=== PATIENT | male | born 1975 | race African-American/Black ===

== ENCOUNTER 2018-06-10 09:08 | Emergency (ER) | payer OTHER, SELFPAY ==
--- NOTE | 2018-06-10 09:59 | RAD ---
RIGHT HAND THREE VIEWS: HISTORY: Trauma. Injury. Dropped wood on hand. COMPARISON: None. FINDINGS: Small erosion, likely chronic, along the medial aspect of the fourth proximal phalanx base. No acute fracture or malalignment. IMPRESSION: No acute fracture or malalignment. POS: [facility]
== END 2018-06-10 09:44 | disposition home or self-care (01) ==
LOC: ERS 09:08
DX: S61.214A Laceration without foreign body of right ring finger without damage to nail, initial encounter (principal); E10.9 Type 1 diabetes mellitus without complications; I10 Essential (primary) hypertension; W20.8XXA Other cause of strike by thrown, projected or falling object, initial encounter

== ENCOUNTER 2018-09-30 11:14 | Emergency (ER) | payer SELFPAY ==
[2018-09-30 12:25] LABS: Base Excess-Venous 0.1 mmol/L (0 (+/- 2.5)); Bicarbonate (HCO3v) 25.4 mmol/L (1.0-85.0); CO2 Tension (PvCO2) 42.4 mmHg (41.0-51.0); Calcium, Ionized 1.18 mmol/L (1.12-1.32); Hemoglobin - Calc 14.6 g/dL (12.0-18.0); O2 Tension (PvO2) 38.2 mmHg (35.0-45.0); Potassium 4.6 mmol/L (3.4-4.7); T. Carbon Dioxide 26.7 mmol/L (1.0-85.0); pH (Venous) 7.386 (7.35-7.45); vO2 Saturation-calc 71.5 % (94-98)
[2018-09-30 12:41] LABS: Hemoglobin 12.8 g/dL (14.0-18.0); Mean Corpuscular HGB CONC 31.6 g/dL (32.0-36.0); Mean Corpuscular Hemoglobin 25.5 pg (27.0-31.0); Mean Corpuscular Volume 80.5 fL (78.0-98.0); Mean Platelet Volume 7.1 fL (7.4-10.4); Platelet Count 266 thou/uL (130-400); RBC Distribution Width 11.9 % (11.5-14.5); Red Blood Cell (RBC) Count 5.03 mill/uL (4.70-6.10); White Blood Cell (WBC) Count 5.3 thou/uL (4.8-10.8)
[2018-09-30 12:48] LABS: #Lymphocytes 2.5 thou/uL (1.20-3.40); #Monocytes 0.4 thou/uL (0.11-0.59); #Neutrophils 2.4 thou/uL (1.40-6.50); %Basophils 0.5 % (0.0-1.0); %Eosinophils 0.1 % (0.0-10.0); %Lymphocytes 46.8 % (21.0-51.0); %Monocytes 7.6 % (0.0-10.0); %Neutrophils 44.9 % (42.0-75.0); RBC Morphology Normal
[2018-09-30 12:54] LABS: ALT (SGPT) 19 U/L (8-55); AST (SGOT) 13 U/L (5-34); Alkaline Phosphatase 145 U/L (40-150); Anion Gap 17 mmol/L (10-20); BUN (Urea Nitrogen) 13 mg/dL (8.9-20.6); Bilirubin, Total 1.6 mg/dL (0.2-1.2); Calc. Creatinine Clearance 0 mL/min (70-130); Calcium 9.4 mg/dL (7.8-10.44); Carbon Dioxide 22 mmol/L (22-29); Chloride 97 mmol/L (98-107); Estimated GFR-MDRD 89; Globulin 3.2 g/dL (2.4-3.5); Potassium 4.6 mmol/L (3.5-5.1); Protein, Total 7.2 g/dL (6.0-8.3); Sodium 131 mmol/L (136-145)
[2018-09-30 12:57] LABS: Glucose 570 mg/dL (70-105)
[2018-09-30] MEDS ORDERED: Insulin Regular 300 UNITS/3 ML VIAL ONE (15:28)
== END 2018-09-30 15:54 | disposition home or self-care (01) ==
LOC: ERS 11:14
DX: E10.65 Type 1 diabetes mellitus with hyperglycemia (principal); Z91.14 Patient's other noncompliance with medication regimen; I10 Essential (primary) hypertension; E05.90 Thyrotoxicosis, unspecified without thyrotoxic crisis or storm; Z79.899 Other long term (current) drug therapy
CPT/HCPCS: 36415; 36416; 80053; 82010; 82330; 82803; 85025; 99284; J1815

== ENCOUNTER 2019-02-19 13:03 | Inpatient (IN) | payer SELFPAY ==
[2019-02-19 13:27] LABS: #Basophils 0.1 thou/uL (0.0-0.2); #Lymphocytes 2.2 thou/uL (1.20-3.40); #Monocytes 0.5 thou/uL (0.11-0.59); #Neutrophils 3.9 thou/uL (1.40-6.50); %Basophils 1.1 % (0.0-1.0); %Eosinophils 0.1 % (0.0-10.0); %Lymphocytes 32.8 % (21.0-51.0); %Monocytes 7.5 % (0.0-10.0); %Neutrophils 58.5 % (42.0-75.0); Hemoglobin 13.9 g/dL (14.0-18.0); Mean Corpuscular HGB CONC 30.9 g/dL (32.0-36.0); Mean Corpuscular Hemoglobin 26.6 pg (27.0-31.0); Mean Corpuscular Volume 85.9 fL (78.0-98.0); Mean Platelet Volume 7.3 fL (7.4-10.4); Platelet Count 267 thou/uL (130-400); RBC Distribution Width 11.5 % (11.5-14.5); Red Blood Cell (RBC) Count 5.22 mill/uL (4.70-6.10); White Blood Cell (WBC) Count 6.6 thou/uL (4.8-10.8)
[2019-02-19 13:30] LABS: Base Excess-Venous -8.4 mmol/L (-2.0 to 3.0); Bicarbonate (HCO3v) 15.5 mmol/L (22.0-28.0); CO2 Tension (PvCO2) 27.8 mmHg (40.0-50.0); Chloride 104 mmol/L (98-107); O2 Tension (PvO2) 52.2 mmHg (35.0-45.0); Potassium 4.6 mmol/L (3.5-5.1); Sodium 132 mmol/L (138-145); T. Carbon Dioxide 16.3 mmol/L (22.0-28.0); pH (Venous) 7.353 (7.320-7.430); vO2 Saturation-calc 85.7 % (60.0-85.0)
[2019-02-19] MEDS ORDERED: Aspirin Chewable 81 MG TAB ONE (13:30)
--- NOTE | 2019-02-19 13:42 | RAD ---
CHEST 1 VIEW: Date: 02/19/19 INDICATION: Chest pain. COMPARISON: Prior exam dated 07/17/14. FINDINGS: Lungs are clear. Heart size is normal. No acute osseous abnormality is evident. IMPRESSION: No acute cardiopulmonary abnormality. POS: [facility]
[2019-02-19 13:48] LABS: ALT (SGPT) 30 U/L (8-55); AST (SGOT) 16 U/L (5-34); Acetaminophen Less than 6.0 mcg/mL (10.0-30.0); Albumin 4.3 g/dL (3.5-5.0); Alcohol Less than 10 mg/dL (Less than 10); Alkaline Phosphatase 164 U/L (40-150); Anion Gap 28 mmol/L (10-20); BUN (Urea Nitrogen) 16 mg/dL (8.9-20.6); Bilirubin, Total 1.8 mg/dL (0.2-1.2); CK (CPK) 146 U/L (30-200); Calc. Creatinine Clearance 0 mL/min (70-130); Calcium 10.1 mg/dL (7.8-10.44); Carbon Dioxide 17 mmol/L (22-29); Chloride 94 mmol/L (98-107); Estimated GFR-MDRD 70; Globulin 3.2 g/dL (2.4-3.5); Lipase 49 U/L (8-78); Potassium 4.6 mmol/L (3.5-5.1); Protein, Total 7.5 g/dL (6.0-8.3); Salicylate Less than 8.0 mg/dL (15.0-30.0); Sodium 134 mmol/L (136-145)
[2019-02-19 13:55] LABS: Glucose 569 mg/dL (70-105)
[2019-02-19] MEDS ORDERED: Potassium Chloride 20 MEQ TAB ONE (14:14)
[2019-02-19] MEDS ORDERED: HUMULIN R 100 UNITS in Sodium Chloride 0.9% 100 ML IVPB SCH ×2 (14:30→15:01)
[2019-02-19 14:38] LABS: Bilirubin Negative (Negative); Blood, Urine Negative (Negative); Clarity CLEAR (Clear); Glucose, Urine (Dipstick) >=1000 mg/dL (Negative); Leukocyte Negative (Negative); Nitrite Negative (Negative); Protein, Urine (Dipstick) Negative (Neg-Trace); Specific Gravity, Urine 1.024 (1.002-1.036); Urobilinogen 0.2 mg/dL (0.2-1.0)
[2019-02-19 14:56] LABS: Amphetamine Not Detected (NotDetected); Barbiturates Screen Not Detected (NotDetected); Benzodiazepine Screen Not Detected (NotDetected); Cocaine Metabolite Screen Not Detected (NotDetected); Medtox Control Line Valid? VALID (VALID); Medtox Reader # READER 1; Methadone Not Detected (NotDetected); Methamphetamine Not Detected (NotDetected); Opiate Screen Not Detected (NotDetected); Oxycodone Screen Not Detected (NotDetected); Phencyclidine (PCP) Not Detected (NotDetected); THC/Cannabinoid Screen Not Detected (NotDetected); Tricyclic Screen Not Detected (NotDetected)
[2019-02-19] MEDS ORDERED: Acetaminophen 325 MG TAB PO PRN (15:01)
[2019-02-19] MEDS ORDERED: NS 0.9% w/ 20 MEQ KCL 1,000 ML IV PRN ×2 (15:01)
[2019-02-19] MEDS ORDERED: CCU Electrolyte Replacement 1 EACH IVPB ONE (15:01)
[2019-02-19] MEDS ORDERED: Sodium Chloride 0.9% 1,000 ML IV PRN ×4 (15:01)
[2019-02-19] MEDS ORDERED: Zolpidem Tartrate 5 MG TAB PO PRN (15:01)
[2019-02-19] MEDS ORDERED: Dextrose 5 %-0.45 % NaCl 1,000 ML IV PRN (15:01)
[2019-02-19] MEDS ORDERED: Ondansetron PF 4 MG/2 ML Vial IVP PRN (15:01)
[2019-02-19] MEDS ORDERED: Potassium Phosphate 9 MMOL in Sodium Chloride 0.9% 100 ML IVPB PRN (15:16)
[2019-02-19] MEDS ORDERED: PHOS-NAK 1 PKT PACK PO PRN ×2 (15:16)
[2019-02-19] MEDS ORDERED: Potassium Chloride 40 MEQ in Premix Bag 1 BAG IVPB PRN (15:16)
[2019-02-19] MEDS ORDERED: CCU ELECTROLYTE REPLACEMENT PROTOCOL FS PRN (15:16)
[2019-02-19] MEDS ORDERED: Potassium Chloride 40 MEQ in Sodium Chloride 0.9% 250 ML 250 ML IVPB PRN (15:16)
[2019-02-19] MEDS ORDERED: Magnesium 2 GM/50 ML 2 GM in Premix Bag 1 BAG IVPB PRN (15:16)
[2019-02-19] MEDS ORDERED: Potassium Phosphate 15 MMOL in Sodium Chloride 0.9% 250 ML 250 ML IV PRN (15:16)
[2019-02-19] MEDS ORDERED: Potassium Phosphate 12 MMOL in Sodium Chloride 0.9% 250 ML 250 ML IV PRN (15:16)
[2019-02-19] MEDS ORDERED: Magnesium Oxide 400 MG TAB PO PRN ×2 (15:16)
[2019-02-19] MEDS ORDERED: Potassium Chloride 20 MEQ TAB PO PRN (15:16)
[2019-02-19] MEDS ORDERED: Morphine 2 MG/ML SYRINGE SLOW IVP PRN (15:17)
[2019-02-19 15:42] LABS: Anion Gap 18 mmol/L (10-20); BUN (Urea Nitrogen) 16 mg/dL (8.9-20.6); Calc. Creatinine Clearance 0 mL/min (70-130); Carbon Dioxide 19 mmol/L (22-29); Chloride 102 mmol/L (98-107); Estimated GFR-MDRD 83; Sodium 134 mmol/L (136-145)
[2019-02-19 15:45] LABS: Glucose 554 mg/dL (70-105)
[2019-02-19 15:47] LABS: Troponin I 0.012 ng/mL (< 0.028)
[2019-02-19 15:56] LABS: Free T4 (Free Thyroxine) 2.05 ng/dL (0.70-1.48); Thyroid Stimulating Hormone Less than 0.0025 uIU/mL (0.35-4.94)
--- NOTE | 2019-02-19 16:01 | HP ---
PRIMARY CARE PROVIDER: Dr. Tim Su. Referred to [facility] by [facility] for DKA and chest pain. The patient relates he saw his PCP last week. His NovoLog 70/30 was changed to Levemir 30 units a day, and NovoLog sliding scale starting at 2 units for 200 and increasing slowly up to 7 units for too high to be measured. He has had nausea and vomiting this morning. He is having some epigastric discomfort. This started this morning. He has had no blood in his emesis. No diarrhea. No shortness of breath. PAST MEDICAL HISTORY: Diabetes mellitus type 1 x10 years; hyperthyroidism, on oral medications; hypertension; anxiety. CURRENT MEDICATIONS: 1. Metoprolol 50 mg p.o. b.i.d. 2. Levemir 30 units in the evening. 3. NovoLog sliding scale. 4. Methimazole 5 units in the morning, 2.5 mg at night. 5. Motrin 800 mg 3 times a day. 6. Tramadol 50 mg p.o. q.6 hours for pain. 7. Xanax 0.5 mg once a day as needed for anxiety. ALLERGIES: NONE. PAST SURGICAL HISTORY: None. FAMILY HISTORY: Diabetes. There is none in his family. His mother is , had hypertension. SOCIAL HISTORY: He is accompanied by his fiancee. Full code status. She is next of kin for him for decision making. No tobacco. No alcohol. No illicit drugs. REVIEW OF SYSTEMS: GENERAL: No headaches, dizziness, or fainting. EYES: Blurred vision with rapid changes of his glucose. No double vision or flashing lights. EAR, NOSE, AND THROAT: No ear pain or drainage. No nasal bleeding. He has occasional sore throat, none at present. CARDIAC: He has the epigastric pain. No true pressure or chest pain. No orthopnea. No paroxysmal nocturnal dyspnea. RESPIRATION: Occasional dry cough. No asthma or wheezing. GASTROINTESTINAL: Nausea and vomiting this morning, epigastric pain. No diarrhea. GENITOURINARY: He has frequent urination without pain or bleeding. MUSCULOSKELETAL: He has cramps in his legs this morning and yesterday. He has chronic back pain, for which he takes tramadol and Motrin. NEUROLOGICAL: No strokes, seizures, or focal weakness. PSYCHIATRIC: No anxiety or depression. SKIN: No bruising, bleeding, or rash. HEME/LYMPH: No tender or swollen lymph nodes in axilla, inguinal, or cervical area. PHYSICAL EXAMINATION: GENERAL: He is alert, cooperative, pleasant gentleman, in no distress. VITAL SIGNS: Blood pressure 123/68, pulse 113, respirations 25, temperature 94 on room air, saturation in the high 90s. HEENT: Examination of his head, eyes, ears, nose, and throat reveals pupils are equal, round, reactive to light. Extraocular movements are intact. Sclerae are white. Tympanic membranes are clear. Nose is clear. Oral mucous membranes are dry. Dental hygiene is good. NECK: No jugular venous distention, adenopathy, or thyromegaly. CHEST: Clear to auscultation and percussion. HEART: Regular rate and rhythm. First second second heart sounds are clear and hyperdynamic. He is mildly tachycardic. No murmurs noticed. ABDOMEN: Has some mild epigastric tenderness. No guarding. Bowel sounds are present. No hepatosplenomegaly, masses, or bruits. EXTREMITIES: Reveal no cyanosis, clubbing, or edema. PULSES: Carotid, radial, femoral, and dorsalis pedis pulses intact and symmetric. SKIN: Warm and dry without bruises or rash. HEME/LYMPH: No tender or swollen lymph nodes in the axilla, inguinal, or cervical area. No petechial hemorrhages on the skin or nailbeds. NEUROLOGICAL: Cranial nerves 2 through 12 are intact. Moves all extremities. Deep tendon reflexes are intact. DIAGNOSTIC DATA: EKG, sinus tachycardia, otherwise normal, reviewed by me. Chest x-ray, no cardiomegaly, CHF, or infiltrate, reviewed by me. LABORATORY DATA: White count 6.6, platelet count 267,000, hemoglobin 13.9. Sodium 134, potassium 4.6, chloride 94, CO2 17, BUN 16, creatinine 1.33, blood sugar 569, followup 516, calcium 10.1, bilirubin 1.8, AST 16, ALT T 30. Troponin 0.11. Arterial blood gas revealed a pH of 7.35. ADMITTING DIAGNOSES: 1. Diabetes mellitus type 1 with diabetic ketoacidosis. 2. Epigastric pain. 3. Hypertension. 4. Hyperthyroidism, on chronic methimazole. PLAN: 1. DKA protocol. Once the DKA is resolved to be stabilized on Levemir and a somewhat more aggressive sliding scale. 2. Serial troponins. I believe his epigastric pain is not cardiac, but it is still reasonable to do that. 3. TSH, T4, T3. 4. Clear liquid diet until nausea and vomiting have resolved. 5. Antiemetics. 6. In the intermediate time between resolution of his nausea and vomiting, we will use a low dose of morphine for his pain. Job ID: [id number]
[2019-02-19 16:08] VITALS: BMI 24.3
[2019-02-19 19:28] LABS: Anion Gap 12 mmol/L (10-20); BUN (Urea Nitrogen) 10 mg/dL (8.9-20.6); Calc. Creatinine Clearance 105 mL/min (70-130); Carbon Dioxide 21 mmol/L (22-29); Chloride 109 mmol/L (98-107); Estimated GFR-MDRD Greater than 90; Glucose 213 mg/dL (70-105); Potassium 4.2 mmol/L (3.5-5.1); Sodium 138 mmol/L (136-145)
[2019-02-19 19:34] LABS: Troponin I Less than 0.010 ng/mL (< 0.028)
[2019-02-19] MEDS: D5 1/2 NS w/20 mEq KCL 1,000 ML IV PRN (20:29)
[2019-02-19] MEDS ORDERED: Famotidine/PF 20 mg/2ml Vial SLOW IVP SCH (21:00)
[2019-02-19 23:29] LABS: Anion Gap 12 mmol/L (10-20); BUN (Urea Nitrogen) 8 mg/dL (8.9-20.6); Calc. Creatinine Clearance 112 mL/min (70-130); Calcium 8.7 mg/dL (7.8-10.44); Carbon Dioxide 22 mmol/L (22-29); Chloride 108 mmol/L (98-107); Estimated GFR-MDRD Greater than 90; Glucose 265 mg/dL (70-105); Potassium 3.8 mmol/L (3.5-5.1); Sodium 138 mmol/L (136-145)
[2019-02-20] MEDS: D5 1/2 NS w/20 mEq KCL 1,000 ML IV PRN ×2 (00:10→04:08)
[2019-02-20 05:17] LABS: Hemoglobin 11.8 g/dL (14.0-18.0); Mean Corpuscular HGB CONC 31.9 g/dL (32.0-36.0); Mean Corpuscular Hemoglobin 26.7 pg (27.0-31.0); Mean Corpuscular Volume 83.8 fL (78.0-98.0); Mean Platelet Volume 6.5 fL (7.4-10.4); Platelet Count 227 thou/uL (130-400); RBC Distribution Width 11.5 % (11.5-14.5); Red Blood Cell (RBC) Count 4.42 mill/uL (4.70-6.10); White Blood Cell (WBC) Count 6.4 thou/uL (4.8-10.8)
[2019-02-20 05:29] LABS: Anion Gap 10 mmol/L (10-20); BUN (Urea Nitrogen) 5 mg/dL (8.9-20.6); Calc. Creatinine Clearance 149 mL/min (70-130); Calcium 8.7 mg/dL (7.8-10.44); Carbon Dioxide 22 mmol/L (22-29); Chloride 110 mmol/L (98-107); Estimated GFR-MDRD Greater than 90; Glucose 185 mg/dL (70-105); Potassium 3.6 mmol/L (3.5-5.1); Sodium 138 mmol/L (136-145)
[2019-02-20] MEDS ORDERED: ALPRAZolam 0.5 MG TAB PO PRN (08:25)
[2019-02-20] MEDS ORDERED: Loratadine 10 MG TAB PO PRN (08:29)
[2019-02-20] MEDS ORDERED: Artificial Tears 18 DROP/0.9 ML EA EYE PRN (08:29)
[2019-02-20] MEDS ORDERED: Cepastat Lozenges 1 LOZ PO PRN (08:29)
[2019-02-20] MEDS ORDERED: Diabetic Tussin 200 MG/10 ML UDCUP PO PRN (08:29)
[2019-02-20] MEDS ORDERED: hydrALAZINE 20 MG/ML VIAL SLOW IVP PRN (08:29)
[2019-02-20] MEDS ORDERED: HumaLOG 300 UNITS/3 ML VIAL SC PRN (08:29)
[2019-02-20] MEDS ORDERED: Ondansetron ODT 4 MG TAB PO PRN (08:29)
[2019-02-20] MEDS ORDERED: Loperamide HCl 2 MG CAP PO PRN (08:29)
[2019-02-20] MEDS ORDERED: Dextrose 50% Abboject 50 ML SYRINGE SLOW IVP PRN (08:29)
[2019-02-20] MEDS ORDERED: Eucerin (Mineral Oil/Petrolatum,White) 30 gm Jar TOP PRN (08:29)
[2019-02-20] MEDS ORDERED: Sodium Chloride 0.65% Nasal 44 ML BOT EA NARE PRN (08:29)
[2019-02-20] MEDS ORDERED: Dextrose 5% in Water 1,000 ML IV PRN (08:29)
[2019-02-20] MEDS ORDERED: Senokot S 8.6-50 MG TAB PO PRN (09:00)
[2019-02-20] MEDS ORDERED: Methimazole 10 MG TAB PO SCH (09:00)
[2019-02-20] MEDS ORDERED: Non-Formulary Item 1 EACH (Insulin Detemir [Levemir] 30 UNITS) SC SCH (09:00)
[2019-02-20] MEDS: Aspirin 325 MG TAB PO SCH (09:45)
[2019-02-20] MEDS: Famotidine 20 MG TAB PO SCH ×2 (09:45→20:06)
[2019-02-20] MEDS: Enoxaparin Sodium 40 MG/0.4 ML SYRINGE SC SCH (09:45)
[2019-02-20] MEDS: Insulin Glargine 30 UNITS in Pre-Filled Syringe 1 EACH SC SCH (09:47)
[2019-02-20] MEDS: HumaLOG 300 UNITS/3 ML VIAL SC PRN ×2 (11:48→16:54)
--- NOTE | 2019-02-20 12:30 | PDOC.PN ---
- Subjective Encounter Start Date: 02/20/19 Encounter Start Time: 10:45 Patient seen and examined. No new complaints. No overnight events - Objective Resuscitation Status - Order Detail: 02/19/19 14:58 Resuscitation Status Routine Resuscitation Status: FULL: Full Resuscitation MAR Reviewed: Yes Vital Signs & Weight: Vital Signs (12 hours) Temp Pulse Resp BP Pulse Ox 02/20/19 11:21 98.1 F 93 16 162/75 H 96 02/20/19 08:41 98.2 F 02/20/19 07:56 99 02/20/19 04:07 98.4 F Weight Admit Weight 159 lb 11.52 oz Weight 159 lb 11.52 oz Most Recent Monitor Data Heart Rate from ECG 109 NIBP 135/80 NIBP BP-Mean 98 Respiration from ECG 16 SpO2 100 I&O: 02/19/19 02/20/19 02/21/19 06:59 06:59 06:59 Intake Total 5645 252 Output Total 1975 500 Balance 3670 -248 Result Diagrams: 02/20/19 05:06 02/20/19 05:06 Additional Labs: Accuchecks 02/20/19 02/20/19 02/20/19 11:29 07:35 06:07 POC Glucose 450 H 219 H 176 H 02/20/19 02/20/19 02/20/19 05:07 04:01 03:14 POC Glucose 175 H 153 H 118 H 02/20/19 02/20/19 02/20/19 02:04 01:05 00:05 POC Glucose 80 130 H 244 H 02/19/19 02/19/19 02/19/19 23:02 22:05 21:13 POC Glucose 261 H 346 H 202 H 02/19/19 02/19/19 02/19/19 20:02 19:03 18:01 POC Glucose 85 220 H 335 H 02/19/19 02/19/19 02/19/19 16:54 15:56 15:05 POC Glucose 359 H 422 H Greater than 550 H* 02/19/19 13:18 POC Glucose 516 H Phys Exam - Physical Examination Constitutional: NAD HEENT: PERRLA, moist MMs, sclera anicteric Neck: no JVD, supple Respiratory: no wheezing, no rales, no rhonchi Cardiovascular: RRR, no significant murmur, no rub Gastrointestinal: soft, non-tender, no distention, positive bowel sounds Musculoskeletal: no edema, pulses present Neurological: non-focal, normal sensation Lymphatic: no nodes Psychiatric: normal affect, A&O x 3 Skin: no rash, normal turgor Dx/Plan (1) DKA (diabetic ketoacidosis) Code(s): E13.10 - OTH DIABETES MELLITUS WITH KETOACIDOSIS WITHOUT COMA Status : Acute (2) Hyperthyroidism Code(s): E05.90 - THYROTOXICOSIS, UNSP WITHOUT THYROTOXIC CRISIS OR STORM Status: Chronic - Plan cont current plan of care * transfer to medical * medication reviewed as below * symptomatic treatment * start home insulin regimen * monitor today and expecting discharge tomorrow. Review of Systems - Review of Systems ENT: negative: Ear Pain, Ear Discharge, Nose Pain, Nose Discharge, Nose Congestion, Mouth Pain, Mouth Swelling, Throat Pain, Throat Swelling, Other Respiratory: negative: Cough, Dry, Shortness of Breath, Hemoptysis, SOB with Excertion, Pleuritic Pain, Sputum, Wheezing Cardiovascular: negative: chest pain, palpitations, orthopnea, paroxysmal nocturnal dyspnea, edema, light headedness, other Gastrointestinal: negative: Nausea, Vomiting, Abdominal Pain, Diarrhea, Constipation, Melena, Hematochezia, Other Genitourinary: negative: Dysuria, Frequency, Incontinence, Hematuria, Retention , Other Musculoskeletal: negative: Neck Pain, Shoulder Pain, Arm Pain, Back Pain, Hand Pain, Leg Pain, Foot Pain, Other Skin: negative: Rash, Lesions, Gopal, Bruising, Other - Medications/Allergies Allergies/Adverse Reactions: Allergies Allergy/AdvReac Type Severity Reaction Status Date / Time No Known Allergies Allergy Verified 02/19/19 16:09 Medications: Current Medications Acetaminophen (Tylenol) 650 mg PO Q4H PRN PRN Reason: Headache/Fever/Mild Pain (1-3) Last Admin: 02/20/19 09:45 Dose: 650 mg Alprazolam (Xanax) 0.5 mg PO DAILY PRN PRN Reason: Anxiety Artificial Tears (Tears Naturale) 2 drop EA EYE PRN PRN PRN Reason: Dry Eyes Aspirin (Aspirin) 325 mg PO DAILY [facility] Last Admin: 02/20/19 09:45 Dose: 325 mg Dextrose/Water (Dextrose 50%) 25 gm SLOW IVP PRN PRN PRN Reason: Hypoglycemia Enoxaparin Sodium (Lovenox) 40 mg SC 0900 [facility] Last Admin: 02/20/19 09:45 Dose: 40 mg Famotidine (Pepcid) 20 mg PO BID [facility] Last Admin: 02/20/19 09:45 Dose: 20 mg Glucagon (Glucagon) 1 mg IM PRN PRN PRN Reason: Hypoglycemia Guaifenesin (Robitussin Sf) 200 mg PO Q4H PRN PRN Reason: Cough Hydralazine HCl (Apresoline) 10 mg SLOW IVP Q4H PRN PRN Reason: SBP > 180 and HR < 70 Dextrose/Water (D5w) 1,000 mls @ 0 mls/hr IV .Q0M PRN PRN Reason: Hypoglycemia Insulin Glargine 30 units/ (Miscellaneous Medication) 0.3 mls @ 0 mls/hr SC QAM [facility] Last Admin: 02/20/19 09:47 Dose: 0.3 mls Insulin Human Lispro (Humalog) 0 units SC .MODERATE SLIDING SC PRN PRN Reason: Moderate Correctional Scale Last Admin: 02/20/19 11:48 Dose: 10 unit Insulin Human Lispro (Humalog) 0 units SC .BEDTIME SLIDING SC PRN PRN Reason: Bedtime Correctional Scale Loperamide HCl (Imodium) 2 mg PO PRN PRN PRN Reason: Diarrhea/Loose Stools Loratadine (Claritin) 10 mg PO DAILYPRN PRN PRN Reason: Sinus Symptoms Methimazole (Tapazole) 10 mg PO BID [facility] Last Admin: 02/20/19 09:46 Dose: 10 mg Metoprolol Tartrate (Lopressor) 50 mg PO QPM [facility] Mineral Oil/White Petrolatum (Eucerin Cream) 0 gm TOP BIDPRN PRN PRN Reason: Dry Skin Morphine Sulfate (Morphine) 2 mg SLOW IVP Q4H PRN PRN Reason: Pain Ondansetron HCl (Zofran) 4 mg IVP Q6H PRN PRN Reason: Nausea/Vomiting Ondansetron HCl (Zofran Odt) 4 mg PO Q6H PRN PRN Reason: Nausea/Vomiting Senna/Docusate Sodium (Senokot S) 2 tab PO BID PRN PRN Reason: Constipation Sodium Chloride ([place] Nasal [place] 0.65%) 0 ml EA NARE QIDPRN PRN PRN Reason: Nasal Congestion Throat Lozenges (Cepastat Lozenges) 1 drea PO Q2H PRN PRN Reason: Sore Throat Zolpidem Tartrate (Ambien) 5 mg PO HSPRN PRN PRN Reason: Insomnia
[2019-02-20] MEDS: Metoprolol Tartrate 50 MG TAB PO SCH (20:07)
[2019-02-20] MEDS ORDERED: Methimazole 5 MG TAB PO SCH (21:00)
[2019-02-20] MEDS ORDERED: Metoprolol Tartrate 50 MG TAB PO SCH (21:00)
[2019-02-21] MEDS: HumaLOG 300 UNITS/3 ML VIAL SC PRN ×2 (05:32→12:35)
[2019-02-21 06:28] LABS: Anion Gap 13 mmol/L (10-20); BUN (Urea Nitrogen) 7 mg/dL (8.9-20.6); Calc. Creatinine Clearance 133 mL/min (70-130); Calcium 9.4 mg/dL (7.8-10.44); Carbon Dioxide 23 mmol/L (22-29); Chloride 106 mmol/L (98-107); Estimated GFR-MDRD Greater than 90; Glucose 189 mg/dL (70-105); Potassium 3.8 mmol/L (3.5-5.1); Sodium 138 mmol/L (136-145)
[2019-02-21 07:28] VITALS: BP 140/82
[2019-02-21] MEDS: Aspirin 325 MG TAB PO SCH (08:21)
[2019-02-21] MEDS: Famotidine 20 MG TAB PO SCH (08:21)
[2019-02-21] MEDS: Enoxaparin Sodium 40 MG/0.4 ML SYRINGE SC SCH (08:21)
[2019-02-21] MEDS: Metoprolol Tartrate 50 MG TAB PO SCH (08:21)
[2019-02-21] MEDS: Insulin Glargine 30 UNITS in Pre-Filled Syringe 1 EACH SC SCH (08:22)
[2019-02-21] MEDS ORDERED: Methimazole 10 MG TAB PO SCH (09:00)
--- NOTE | 2019-02-21 10:35 | PDOC.PN ---
- Subjective Encounter Start Date: 02/21/19 Encounter Start Time: 09:30 Patient seen and examined. No new complaints. No overnight events - Objective Resuscitation Status - Order Detail: 02/19/19 14:58 Resuscitation Status Routine Resuscitation Status: FULL: Full Resuscitation MAR Reviewed: Yes Vital Signs & Weight: Vital Signs (12 hours) Temp Pulse Resp BP Pulse Ox 02/21/19 08:00 96 02/21/19 07:27 98.3 F 81 16 140/82 96 02/21/19 05:00 98.4 F 88 18 153/78 H 94 L 02/21/19 00:00 98.2 F 94 16 127/70 97 Weight Admit Weight 159 lb 11.52 oz Weight 159 lb 11.52 oz Most Recent Monitor Data Heart Rate from ECG 109 NIBP 135/80 NIBP BP-Mean 98 Respiration from ECG 16 SpO2 100 I&O: 02/20/19 02/21/19 02/22/19 06:59 06:59 06:59 Intake Total 5645 1772 240 Output Total 1975 500 Balance 3670 1272 240 Result Diagrams: 02/20/19 05:06 02/21/19 06:02 Additional Labs: Accuchecks 02/21/19 02/20/19 02/20/19 05:06 20:44 16:31 POC Glucose 209 H 219 H 315 H 02/20/19 02/20/19 13:34 11:29 POC Glucose 337 H 450 H Phys Exam - Physical Examination Constitutional: NAD HEENT: PERRLA, moist MMs, sclera anicteric Neck: no JVD, supple Respiratory: no wheezing, no rales, no rhonchi Cardiovascular: RRR, no significant murmur, no rub Gastrointestinal: soft, non-tender, no distention, positive bowel sounds Musculoskeletal: no edema, pulses present Neurological: non-focal, normal sensation, moves all 4 limbs Lymphatic: no nodes Psychiatric: normal affect, A&O x 3 Skin: no rash, normal turgor Dx/Plan (1) DKA (diabetic ketoacidosis) Code(s): E13.10 - OTH DIABETES MELLITUS WITH KETOACIDOSIS WITHOUT COMA Status : Acute (2) Hyperthyroidism Code(s): E05.90 - THYROTOXICOSIS, UNSP WITHOUT THYROTOXIC CRISIS OR STORM Status: Chronic - Plan cont current plan of care * medication reviewed as below * symptomatic treatment * see discharge summery. Review of Systems - Review of Systems ENT: negative: Ear Pain, Ear Discharge, Nose Pain, Nose Discharge, Nose Congestion, Mouth Pain, Mouth Swelling, Throat Pain, Throat Swelling, Other Respiratory: negative: Cough, Dry, Shortness of Breath, Hemoptysis, SOB with Excertion, Pleuritic Pain, Sputum, Wheezing Cardiovascular: negative: chest pain, palpitations, orthopnea, paroxysmal nocturnal dyspnea, edema, light headedness, other Gastrointestinal: negative: Nausea, Vomiting, Abdominal Pain, Diarrhea, Constipation, Melena, Hematochezia, Other Genitourinary: negative: Dysuria, Frequency, Incontinence, Hematuria, Retention , Other Musculoskeletal: negative: Neck Pain, Shoulder Pain, Arm Pain, Back Pain, Hand Pain, Leg Pain, Foot Pain, Other - Medications/Allergies Allergies/Adverse Reactions: Allergies Allergy/AdvReac Type Severity Reaction Status Date / Time No Known Allergies Allergy Verified 02/19/19 16:09 Medications: Current Medications Acetaminophen (Tylenol) 650 mg PO Q4H PRN PRN Reason: Headache/Fever/Mild Pain (1-3) Last Admin: 02/20/19 09:45 Dose: 650 mg Alprazolam (Xanax) 0.5 mg PO DAILY PRN PRN Reason: Anxiety Artificial Tears (Tears Naturale) 2 drop EA EYE PRN PRN PRN Reason: Dry Eyes Aspirin (Aspirin) 325 mg PO DAILY [facility] Last Admin: 02/21/19 08:21 Dose: 325 mg Dextrose/Water (Dextrose 50%) 25 gm SLOW IVP PRN PRN PRN Reason: Hypoglycemia Enoxaparin Sodium (Lovenox) 40 mg SC 0900 [facility] Last Admin: 02/21/19 08:21 Dose: 40 mg Famotidine (Pepcid) 20 mg PO BID [facility] Last Admin: 02/21/19 08:21 Dose: 20 mg Glucagon (Glucagon) 1 mg IM PRN PRN PRN Reason: Hypoglycemia Guaifenesin (Robitussin Sf) 200 mg PO Q4H PRN PRN Reason: Cough Hydralazine HCl (Apresoline) 10 mg SLOW IVP Q4H PRN PRN Reason: SBP > 180 and HR < 70 Dextrose/Water (D5w) 1,000 mls @ 0 mls/hr IV .Q0M PRN PRN Reason: Hypoglycemia Insulin Glargine 30 units/ (Miscellaneous Medication) 0.3 mls @ 0 mls/hr [facility] Last Admin: 02/21/19 08:22 Dose: 0.3 mls Insulin Glargine 15 units/ (Miscellaneous Medication) 0.15 mls @ 0 mls/hr SC [facility] Insulin Human Lispro (Humalog) 0 units SC .MODERATE SLIDING SC PRN PRN Reason: Moderate Correctional Scale Last Admin: 02/21/19 05:32 Dose: 4 unit Insulin Human Lispro (Humalog) 0 units SC .BEDTIME SLIDING SC PRN PRN Reason: Bedtime Correctional Scale Last Admin: 02/20/19 21:30 Dose: 2 units Loperamide HCl (Imodium) 2 mg PO PRN PRN PRN Reason: Diarrhea/Loose Stools Loratadine (Claritin) 10 mg PO DAILYPRN PRN PRN Reason: Sinus Symptoms Methimazole (Tapazole) [facility] [place] Last Admin: 02/21/19 08:22 Dose: 10 mg Methimazole () 5 mg PO QPM [facility] Last Admin: 02/20/19 20:15 Dose: 5 mg Metoprolol Tartrate (Lopressor) 50 mg PO BID [facility] Last Admin: 02/21/19 08:21 Dose: 50 mg Mineral Oil/White Petrolatum (Eucerin Cream) 0 gm TOP BIDPRN PRN PRN Reason: Dry Skin Morphine Sulfate (Morphine) 2 mg SLOW IVP Q4H PRN PRN Reason: Pain Ondansetron HCl (Zofran) 4 mg IVP Q6H PRN PRN Reason: Nausea/Vomiting Ondansetron HCl (Zofran Odt) 4 mg PO Q6H PRN PRN Reason: Nausea/Vomiting Senna/Docusate Sodium (Senokot S) 2 tab PO BID PRN PRN Reason: Constipation Sodium Chloride ([place] Nasal [place] 0.65%) 0 ml EA NARE QIDPRN PRN PRN Reason: Nasal Congestion Sodium Chloride (Flush - Normal Saline) 10 ml IVF Q12HR TESSY Sodium Chloride (Flush - Normal Saline) 10 ml IVF PRN PRN PRN Reason: Saline Flush Throat Lozenges (Cepastat Lozenges) 1 drea PO Q2H PRN PRN Reason: Sore Throat Zolpidem Tartrate (Ambien) 5 mg PO HSPRN PRN PRN Reason: Insomnia
--- NOTE | 2019-02-21 11:10 | DIS ---
DATE OF ADMISSION: 02/19/2019 DATE OF DISCHARGE: 02/21/2019 PRIMARY CARE PHYSICIAN: Dr. Tim Su. DISCHARGE DISPOSITION: Home. PRIMARY DISCHARGE DIAGNOSIS: DKA, resolved. SECONDARY DISCHARGE DIAGNOSES: Diabetes type 1, on insulin; hyperthyroidism; anxiety disorder. PRIMARY PROCEDURE/OPERATION: None. RADIOLOGICAL INVESTIGATION: Chest x-ray normal. SIGNIFICANT LABORATORY DATA: Hemoglobin 11.8 and creatinine 0.72. Urinalysis, glucosuria, ketonuria. Urine drug screen negative. Blood culture and urine culture, negative. DISCHARGE MEDICATIONS: 1. Xanax 0.5 mg p.o. daily. 2. Methimazole 10 mg in the morning and 5 mg in the evening. 3. Metoprolol 50 mg p.o. b.i.d. 4. Tramadol 50 mg q.4 hourly p.r.n. 5. Levemir insulin 30 units subcu in the morning and 15 units at bedtime. 6. NovoLog insulin as per sliding scale. CONTRAINDICATION: None. CODE STATUS: Full code. INPATIENT CONSULTANTS: None. ALLERGIES: NO KNOWN DRUG ALLERGIES. DISCHARGE PLAN: Posthospital, the patient will follow up with primary care physician in one week. HOSPITAL COURSE: A 43-year-old male with above-mentioned medical problem, who was admitted by Dr. Salazar. Please see his H and P for further details. The patient was admitted for DKA. He was admitted to [facility]. He was treated with DKA protocol order. His DKA resolved and subsequently changed to his home insulin regimen. During this admission, we increased Levemir insulin to 15 units at bedtime. The rest of medication will be continued as per previous. The patient is seen and examined at bedside today and necessary patient education about diabetes is given. He will follow up with his primary care physician in one week. Job ID: [id number]
[2019-02-21 11:32] VITALS: TEMP 96.5
[2019-02-21] MEDS ORDERED: Insulin Glargine 15 UNITS in Pre-Filled Syringe 1 EACH SC SCH (21:00)
== END 2019-02-21 15:54 | disposition home or self-care (01) | DRG 639 ==
LOC: ERS 13:03 → IMCU/EMU 14:04 → T4-A 02-20 11:10
PROVIDERS: ADMIT Internal Medicine; ATTEND Internal Medicine
DX: E10.10 Type 1 diabetes mellitus with ketoacidosis without coma (principal); R10.13 Epigastric pain; I10 Essential (primary) hypertension; E05.90 Thyrotoxicosis, unspecified without thyrotoxic crisis or storm; F41.9 Anxiety disorder, unspecified; Z79.4 Long term (current) use of insulin
CPT/HCPCS: 36415; 36416; 71045; 80048; 80053; 80306; 80307; 81003; 82010; 82330; 82550; 82803; 83690; 83880; 84439; 84443; 84481; 84484; 85025; 85027; 87040; 87086; 93005; 96361; 96365; J1650; J1815; J1825; J3490; S0028

== ENCOUNTER 2019-07-11 09:31 | Emergency (ER) | payer SELFPAY ==
[2019-07-11 10:37] LABS: Hemoglobin 13.4 g/dL (14.0-18.0); Mean Corpuscular HGB CONC 32.6 g/dL (32.0-36.0); Mean Corpuscular Hemoglobin 27.5 pg (27.0-31.0); Mean Corpuscular Volume 84.1 fL (78.0-98.0); Mean Platelet Volume 6.2 fL (7.4-10.4); Platelet Count 334 thou/uL (130-400); RBC Distribution Width 11.6 % (11.5-14.5); Red Blood Cell (RBC) Count 4.88 mill/uL (4.70-6.10); White Blood Cell (WBC) Count 5.7 thou/uL (4.8-10.8)
[2019-07-11 10:49] LABS: ALT (SGPT) 15 U/L (8-55); AST (SGOT) 15 U/L (5-34); Albumin 4.1 g/dL (3.5-5.0); Alkaline Phosphatase 122 U/L (40-150); Anion Gap 10 mmol/L (10-20); BUN (Urea Nitrogen) 9 mg/dL (8.9-20.6); Bilirubin, Total 0.8 mg/dL (0.2-1.2); Calc. Creatinine Clearance 0 mL/min (70-130); Carbon Dioxide 27 mmol/L (22-29); Chloride 105 mmol/L (98-107); Estimated GFR-MDRD Greater than 90; Globulin 2.7 g/dL (2.4-3.5); Glucose 156 mg/dL (70-105); Lipase 27 U/L (8-78); Potassium 3.3 mmol/L (3.5-5.1); Protein, Total 6.8 g/dL (6.0-8.3); Sodium 139 mmol/L (136-145)
[2019-07-11 10:59] LABS: Band 1 % (5-11); Lymphocytes 61 % (21-51); MDiff Complete? YES; Monocytes 5 % (0-10); Neutrophil 29 % (42-75); RBC Morphology Normal; Reactive Lymphocytes 4 % (0-10)
[2019-07-11] MEDS ORDERED: Potassium Chloride 20 MEQ TAB ONE (11:01)
== END 2019-07-11 17:41 | disposition home or self-care (01) ==
LOC: ERS 09:31
DX: E10.65 Type 1 diabetes mellitus with hyperglycemia (principal); R11.0 Nausea; E05.90 Thyrotoxicosis, unspecified without thyrotoxic crisis or storm; F41.9 Anxiety disorder, unspecified; Z79.899 Other long term (current) drug therapy
CPT/HCPCS: 36415; 36416; 80053; 83690; 85025; 99284

== ENCOUNTER 2021-06-16 10:50 | Emergency (ER) | payer SELFPAY ==
[2021-06-16 11:37] LABS: Hemoglobin 14.7 g/dL (14.0-18.0); Mean Corpuscular HGB CONC 31.8 g/dL (32.0-36.0); Mean Corpuscular Hemoglobin 26.4 pg (27.0-31.0); Mean Corpuscular Volume 82.9 fL (78.0-98.0); Mean Platelet Volume 7.2 fL (7.4-10.4); Platelet Count 321 thou/uL (130-400); RBC Distribution Width 11.1 % (11.5-14.5); Red Blood Cell (RBC) Count 5.56 mill/uL (4.70-6.10); White Blood Cell (WBC) Count 4.9 thou/uL (4.8-10.8)
[2021-06-16 11:43] LABS: Magnesium 2.2 mg/dL (1.6-2.6)
[2021-06-16 11:53] LABS: ALT (SGPT) 21 U/L (8-55); AST (SGOT) 12 U/L (5-34); Albumin 4.3 g/dL (3.5-5.0); Alkaline Phosphatase 138 U/L (40-110); Anion Gap 17 mmol/L (10-20); BUN (Urea Nitrogen) 19 mg/dL (8.9-20.6); Bilirubin, Total 2.1 mg/dL (0.2-1.2); Calc. Creatinine Clearance 0 mL/min (70-130); Calcium 10.3 mg/dL (7.8-10.44); Carbon Dioxide 24 mmol/L (22-29); Chloride 101 mmol/L (98-107); Globulin 3.5 g/dL (2.4-3.5); Glucose 297 mg/dL (70-105); Phosphorus 5.6 mg/dL (2.3-4.7); Potassium 4.2 mmol/L (3.5-5.1); Protein, Total 7.8 g/dL (6.0-8.3); Sodium 138 mmol/L (136-145)
[2021-06-16 12:15] LABS: Eosinophils 1 % (0-10); Lymphocytes 56 % (21-51); MDiff Complete? YES; Monocytes 16 % (0-10); Neutrophil 20 % (42-75); Platelet Morphology Comment Appears Adequate; RBC Morphology Normal; Reactive Lymphocytes 7 % (0-10)
[2021-06-16] MEDS ORDERED: Ondansetron PF 4 MG/2 ML Vial ONE (12:15)
[2021-06-16] MEDS ORDERED: Dexamethasone 4 mg/ml Vial ONE (21:33)
[2021-06-16] MEDS ORDERED: Cefepime 2 GM VIAL ONE (21:33)
== END 2021-06-16 14:05 | disposition home or self-care (01) ==
LOC: ERS 10:50
DX: E10.65 Type 1 diabetes mellitus with hyperglycemia (principal); R11.10 Vomiting, unspecified; I10 Essential (primary) hypertension; E05.90 Thyrotoxicosis, unspecified without thyrotoxic crisis or storm; Z79.899 Other long term (current) drug therapy
CPT/HCPCS: 36415; 36416; 80053; 82010; 83735; 84100; 85025; 93005; 96374; J0692; J1100; J2405

== ENCOUNTER 2021-11-20 01:30 | Inpatient (IN) | payer SELFPAY ==
[2021-11-20] MEDS ORDERED: Ondansetron ODT 4 MG TAB ONE (02:41)
[2021-11-20 02:48] LABS: #Monocytes 0.6 thou/uL (0.11-0.59); #Neutrophils 3.1 thou/uL (1.40-6.50); %Basophils 0.1 % (0.0-1.0); %Eosinophils 0.1 % (0.0-10.0); %Lymphocytes 34.4 % (21.0-51.0); %Monocytes 10.4 % (0.0-10.0); Hemoglobin 14.8 g/dL (14.0-18.0); Mean Corpuscular HGB CONC 33.5 g/dL (32.0-36.0); Mean Corpuscular Hemoglobin 27.3 pg (27.0-31.0); Mean Corpuscular Volume 81.4 fL (78.0-98.0); Mean Platelet Volume 7.4 fL (7.4-10.4); Platelet Count 203 thou/uL (130-400); RBC Distribution Width 11.5 % (11.5-14.5); Red Blood Cell (RBC) Count 5.43 mill/uL (4.70-6.10); White Blood Cell (WBC) Count 5.7 thou/uL (4.8-10.8)
[2021-11-20 03:10] LABS: ALT (SGPT) 20 U/L (8-55); AST (SGOT) 21 U/L (5-34); Alkaline Phosphatase 109 U/L (40-110); Anion Gap 29 mmol/L (10-20); BUN (Urea Nitrogen) 16 mg/dL (8.9-20.6); Bilirubin, Total 1.4 mg/dL (0.2-1.2); Calc. Creatinine Clearance 0 mL/min (70-130); Calcium 9.2 mg/dL (7.8-10.44); Carbon Dioxide 14 mmol/L (22-29); Chloride 98 mmol/L (98-107); Globulin 3.8 g/dL (2.4-3.5); Glucose 498 mg/dL (70-105); Potassium 4.8 mmol/L (3.5-5.1); Protein, Total 7.8 g/dL (6.0-8.3); Sodium 136 mmol/L (136-145)
[2021-11-20] MEDS ORDERED: INSULIN REGULAR IN 0.9 % NACL 100 UNIT/100 ML BAG ONE (03:34)
[2021-11-20 03:52] LABS: Bilirubin Negative (Negative); Blood, Urine Negative (Negative); Clarity Clear (Clear); Glucose, Urine (Dipstick) Greater than 1000 mg/dL (Negative); Ketone, Urine 150 mg/dL (Negative); Leukocyte Negative Leu/uL (Negative); Nitrite Negative (Negative); Protein, Urine (Dipstick) Negative (Neg-Trace); Specific Gravity, Urine 1.027 (1.002-1.036); Urobilinogen Normal mg/dL (Less than 2)
[2021-11-20] MEDS ORDERED: Dextrose 50% Abboject 50 ML SYRINGE SLOW IVP PRN (04:15)
[2021-11-20] MEDS ORDERED: Dextrose 5 %-0.45 % NaCl 1,000 ML IV PRN (04:15)
[2021-11-20] MEDS ORDERED: ADD ELECTROLYTE REPLACEMENT SET TO PROFILE FS SCH (04:15)
[2021-11-20] MEDS ORDERED: Sodium Chloride 0.9% 1,000 ML IV PRN ×4 (04:15)
[2021-11-20] MEDS ORDERED: Insulin Regular 300 UNITS/3 ML VIAL IVP SCH (04:15)
[2021-11-20] MEDS ORDERED: HUMULIN R 100 UNITS in Sodium Chloride 0.9% 100 ML IVPB SCH (04:15)
[2021-11-20] MEDS ORDERED: Dextrose 5% in Water 1,000 ML IV PRN (04:15)
[2021-11-20] MEDS ORDERED: NS 0.9% w/ 20 MEQ KCL 1,000 ML/1,000 ML BAG IV PRN ×2 (04:15)
[2021-11-20] MEDS ORDERED: Acetaminophen 325 MG TAB PO PRN (04:16)
[2021-11-20] MEDS ORDERED: Ondansetron PF 4 MG/2 ML Vial ONE (04:44)
[2021-11-20] MEDS: Ondansetron PF 4 MG/2 ML Vial IVP PRN ×2 (04:48→13:07)
[2021-11-20 04:56] LABS: Analyzer IN Cardio ER; Base Excess -16.7 mEq/L (-2.0 to +3.0); Calcium, Ionized (venous) 1.09 mmol/L (1.16-1.32); Chloride (VBG) 103 mmol/L (98-106); Hemoglobin (Hb) 14.5 g/dL (13.1-17.2); Potassium (VBG) 5.34 mmol/L (3.70-5.30); Sodium 136.7 mmol/L (133-146)
[2021-11-20 04:59] LABS: Actual Bicarbonate (HCO3v) 10 mEq/L (22-28)
[2021-11-20 05:22] LABS: SARS-CoV-2 NAA Rapid Test DETECTED (NotDetected)
[2021-11-20] MEDS ORDERED: NS 0.9% w/ 20 MEQ KCL 1,000 ML ONE (07:42)
[2021-11-20 09:43] LABS: Anion Gap 22 mmol/L (10-20); BUN (Urea Nitrogen) 15 mg/dL (8.9-20.6); Calc. Creatinine Clearance 0 mL/min (70-130); Calcium 8.4 mg/dL (7.8-10.44); Carbon Dioxide 12 mmol/L (22-29); Chloride 114 mmol/L (98-107); Glucose 215 mg/dL (70-105); Sodium 143 mmol/L (136-145)
[2021-11-20] MEDS ORDERED: Enoxaparin Sodium 40 MG/0.4 ML SYRINGE ONE (09:56)
[2021-11-20 12:00] VITALS: BMI 23.4
[2021-11-20] MEDS: Enoxaparin Sodium 40 MG/0.4 ML SYRINGE SC SCH (12:20)
[2021-11-20 12:48] LABS: Anion Gap 15 mmol/L (10-20); BUN (Urea Nitrogen) 12 mg/dL (8.9-20.6); Calc. Creatinine Clearance 84 mL/min (70-130); Calcium 8.3 mg/dL (7.8-10.44); Carbon Dioxide 18 mmol/L (22-29); Chloride 116 mmol/L (98-107); Glucose 167 mg/dL (70-105); Potassium 4.3 mmol/L (3.5-5.1); Sodium 145 mmol/L (136-145)
[2021-11-20] MEDS: D5 1/2 NS w/20 mEq KCL 1,000 ML IV PRN ×2 (13:07→18:12)
[2021-11-20] MEDS ORDERED: traMADol HCl 50 MG TAB PO PRN (15:42)
[2021-11-20] MEDS: Metoprolol Tartrate 50 MG TAB PO SCH (20:50)
[2021-11-21] MEDS ORDERED: Cepastat Lozenges 1 LOZ PO PRN (03:30)
[2021-11-21 04:21] LABS: Actual Bicarbonate (HCO3v) 18 mEq/L (22-28); Base Excess -7.2 mEq/L (-2.0 to +3.0); Calcium, Ionized (venous) 1.13 mmol/L (1.16-1.32); Chloride (VBG) 111 mmol/L (98-106); Hemoglobin (Hb) 12.4 g/dL (13.1-17.2); Potassium (VBG) 3.98 mmol/L (3.70-5.30); Sodium 139.9 mmol/L (133-146); pH (venous) 7.33 (7.32-7.43)
[2021-11-21 04:29] LABS: Hemoglobin 11.8 g/dL (14.0-18.0); Mean Corpuscular HGB CONC 31.5 g/dL (32.0-36.0); Mean Corpuscular Hemoglobin 25.6 pg (27.0-31.0); Mean Corpuscular Volume 81.3 fL (78.0-98.0); Mean Platelet Volume 7.2 fL (7.4-10.4); Platelet Count 187 thou/uL (130-400); RBC Distribution Width 11.5 % (11.5-14.5); White Blood Cell (WBC) Count 4.6 thou/uL (4.8-10.8)
[2021-11-21 04:39] LABS: ALT (SGPT) 13 U/L (8-55); AST (SGOT) 23 U/L (5-34); Albumin 2.9 g/dL (3.5-5.0); Alkaline Phosphatase 73 U/L (40-110); Anion Gap 12 mmol/L (10-20); BUN (Urea Nitrogen) 6 mg/dL (8.9-20.6); Bilirubin, Total 1.2 mg/dL (0.2-1.2); Calc. Creatinine Clearance 106 mL/min (70-130); Calcium 7.9 mg/dL (7.8-10.44); Carbon Dioxide 17 mmol/L (22-29); Chloride 113 mmol/L (98-107); Globulin 2.8 g/dL (2.4-3.5); Glucose 261 mg/dL (70-105); Lipase 46 U/L (8-78); Magnesium 1.9 mg/dL (1.6-2.6); Phosphorus 2.9 mg/dL (2.3-4.7); Potassium 3.9 mmol/L (3.5-5.1); Protein, Total 5.7 g/dL (6.0-8.3); Sodium 138 mmol/L (136-145)
[2021-11-21 04:42] LABS: Free T4 (Free Thyroxine) 1.85 ng/dL (0.70-1.48); Thyroid Stimulating Hormone Less than 0.0025 uIU/mL (0.35-4.94)
[2021-11-21 05:14] LABS: Band 1 % (5-11); Lymphocytes 66 % (21-51); MDiff Complete? YES; Monocytes 7 % (0-10); Neutrophil 26 % (42-75); RBC Morphology Normal
[2021-11-21] MEDS: D5 1/2 NS w/20 mEq KCL 1,000 ML IV PRN ×2 (07:34→09:40)
[2021-11-21] MEDS: Methimazole 10 MG TAB PO SCH (09:39)
[2021-11-21] MEDS: Metoprolol Tartrate 50 MG TAB PO SCH ×2 (09:40→22:02)
[2021-11-21] MEDS: Enoxaparin Sodium 40 MG/0.4 ML SYRINGE SC SCH (09:40)
[2021-11-21] MEDS ORDERED: Dextrose 50% Abboject 50 ML SYRINGE SLOW IVP PRN (09:54)
[2021-11-21] MEDS ORDERED: Dextrose 5% in Water 1,000 ML IV PRN (09:54)
[2021-11-21] MEDS ORDERED: HumaLOG 300 UNITS/3 ML VIAL SC PRN (09:54)
[2021-11-21] MEDS: Lantus 1000 UNITS/10 ML VIAL SC SCH ×3 (13:24→22:15)
[2021-11-21] MEDS: HumaLOG 300 UNITS/3 ML VIAL SC PRN (17:33)
[2021-11-21] MEDS ORDERED: Lantus 1000 UNITS/10 ML VIAL SC SCH (21:00)
[2021-11-22 08:26] LABS: Band 6 % (5-11); Hemoglobin 11.9 g/dL (14.0-18.0); Lymphocytes 55 % (21-51); MDiff Complete? YES; Mean Corpuscular HGB CONC 32.4 g/dL (32.0-36.0); Mean Corpuscular Hemoglobin 26.4 pg (27.0-31.0); Mean Corpuscular Volume 81.6 fL (78.0-98.0); Mean Platelet Volume 7.1 fL (7.4-10.4); Monocytes 3 % (0-10); Neutrophil 23 % (42-75); Ovalocytes SLIGHT = 2-5 cells (100X) (0-1/hpf); Platelet Count 185 thou/uL (130-400); Platelet Morphology Comment Appears Adequate; RBC Distribution Width 11.1 % (11.5-14.5); Reactive Lymphocytes 13 % (0-10); Red Blood Cell (RBC) Count 4.49 mill/uL (4.70-6.10); White Blood Cell (WBC) Count 4.2 thou/uL (4.8-10.8)
[2021-11-22 08:29] VITALS: BP 161/87; TEMP 98.2
[2021-11-22] MEDS: Metoprolol Tartrate 50 MG TAB PO SCH (09:58)
[2021-11-22] MEDS: Enoxaparin Sodium 40 MG/0.4 ML SYRINGE SC SCH (09:58)
[2021-11-22] MEDS: Methimazole 10 MG TAB PO SCH (10:22)
[2021-11-22] MEDS: Lantus 1000 UNITS/10 ML VIAL SC SCH (10:23)
[2021-11-22 11:06] LABS: ALT (SGPT) 24 U/L (8-55); AST (SGOT) 40 U/L (5-34); Albumin 2.8 g/dL (3.5-5.0); Alkaline Phosphatase 85 U/L (40-110); Anion Gap 15 mmol/L (10-20); BUN (Urea Nitrogen) 5 mg/dL (8.9-20.6); Bilirubin, Total 1.1 mg/dL (0.2-1.2); Calc. Creatinine Clearance 128 mL/min (70-130); Calcium 8.1 mg/dL (7.8-10.44); Carbon Dioxide 18 mmol/L (22-29); Chloride 112 mmol/L (98-107); Globulin 2.8 g/dL (2.4-3.5); Glucose 162 mg/dL (70-105); Magnesium 1.6 mg/dL (1.6-2.6); Phosphorus 3.8 mg/dL (2.3-4.7); Potassium 3.6 mmol/L (3.5-5.1); Protein, Total 5.6 g/dL (6.0-8.3); Sodium 141 mmol/L (136-145)
[2021-11-22] MEDS: HumaLOG 300 UNITS/3 ML VIAL SC PRN (12:05)
[2021-11-23] MEDS ORDERED: FLU VACC QS2021-22(6MOS UP)/PF 60 MCG/0.5 ML SYRINGE IM ONE (17:00)
== END 2021-11-22 12:25 | disposition home or self-care (01) | DRG 637 ==
LOC: ERS 01:30 → ERHOLD 03:40 → IMCU/EMU 11:18 → T4-A 11-21 19:24
PROVIDERS: ADMIT Internal Medicine; ATTEND Family Medicine
PROC: 8E0ZXY6 Isolation (ICD-10-PCS; principal; 2021-11-20)
DX: E10.10 Type 1 diabetes mellitus with ketoacidosis without coma (principal); U07.1 COVID-19; N17.9 Acute kidney failure, unspecified; I10 Essential (primary) hypertension; E86.0 Dehydration; F41.9 Anxiety disorder, unspecified; E03.9 Hypothyroidism, unspecified; E05.90 Thyrotoxicosis, unspecified without thyrotoxic crisis or storm; Z79.4 Long term (current) use of insulin; Z79.899 Other long term (current) drug therapy; Z91.14 Patient's other noncompliance with medication regimen; Z87.891 Personal history of nicotine dependence; Z80.42 Family history of malignant neoplasm of prostate; Z80.3 Family history of malignant neoplasm of breast
CPT/HCPCS: 36415; 36416; 80053; 81003; 82010; 82805; 83036; 83690; 83735; 84100; 84439; 84443; 85025; J0500; J1650; J1815; J2405; J3480; J3490; J7050; Q0162; U0002

== ENCOUNTER 2022-04-24 23:13 | Emergency (ER) | payer SELFPAY | END 2022-04-25 00:24 | disposition home or self-care (01) | LOC: ERS 23:13 | DX: E10.649 Type 1 diabetes mellitus with hypoglycemia without coma (principal); I10 Essential (primary) hypertension; E05.90 Thyrotoxicosis, unspecified without thyrotoxic crisis or storm; Z79.899 Other long term (current) drug therapy; Z79.4 Long term (current) use of insulin | CPT/HCPCS: 36416; 99284 ==

== ENCOUNTER 2022-07-23 10:01 | Outpatient (CLI) | payer OTHER | END 2022-07-23 10:02 | disposition home or self-care (01) | LOC: BICRAD 10:01 | PROVIDERS: ATTEND Family Medicine | DX: M79.642 Pain in left hand (principal); M18.12 Unilateral primary osteoarthritis of first carpometacarpal joint, left hand ==

== ENCOUNTER 2023-08-12 15:07 | Outpatient (CLI) | payer OTHER | END 2023-08-12 15:08 | disposition home or self-care (01) | LOC: BICRAD 15:07 | PROVIDERS: ATTEND Preventive Medicine Occupational Medicine | DX: M46.96 Unspecified inflammatory spondylopathy, lumbar region (principal); M47.816 Spondylosis without myelopathy or radiculopathy, lumbar region | CPT/HCPCS: 72100 ==

== ENCOUNTER 2023-10-10 14:55 | Emergency (ER) | payer SELFPAY | END 2023-10-10 15:51 | disposition home or self-care (01) | LOC: ERS 14:55 | DX: I10 Essential (primary) hypertension (principal); E10.9 Type 1 diabetes mellitus without complications; E78.5 Hyperlipidemia, unspecified; E05.90 Thyrotoxicosis, unspecified without thyrotoxic crisis or storm; Z79.899 Other long term (current) drug therapy | CPT/HCPCS: 99283 ==

== ENCOUNTER 2024-11-20 07:40 | Emergency (ER) | payer BC, SELFPAY ==
[2024-11-20] MEDS ORDERED: Acetaminophen 500 MG TAB ONE (08:19)
[2024-11-20] MEDS ORDERED: Lidocaine 4% Patch ONE (08:19)
== END 2024-11-20 08:30 | disposition home or self-care (01) ==
LOC: ERS 07:40
DX: S39.012A Strain of muscle, fascia and tendon of lower back, initial encounter (principal); I10 Essential (primary) hypertension; E10.9 Type 1 diabetes mellitus without complications; E78.5 Hyperlipidemia, unspecified; X50.0XXA Overexertion from strenuous movement or load, initial encounter; Y93.F2 Activity, caregiving, lifting; Y92.69 Other specified industrial and construction area as the place of occurrence of the external cause; Z87.891 Personal history of nicotine dependence; Z79.4 Long term (current) use of insulin; Z79.899 Other long term (current) drug therapy
CPT/HCPCS: 99283

== ENCOUNTER 2024-12-04 07:44 | Emergency (ER) | payer SELFPAY ==
[2024-12-04] MEDS ORDERED: Aspirin Chewable 81 MG TAB ONE (08:11)
[2024-12-04] MEDS ORDERED: Acetaminophen 500 MG TAB ONE (08:11)
[2024-12-04 08:28] LABS: #Basophils 0.04 10x3/uL (0.0-0.2); #Eosinophils Less than 0.03 10x3/uL (0.0-0.7); %Basophils 0.9 % (0.0-1.0); %Eosinophils 0.4 % (0.0-10.0); %Lymphocytes 45.8 % (21.0-51.0); %Monocytes 7.8 % (0.0-10.0); %Neutrophils 44.7 % (42.0-75.0); Hematocrit 43.6 % (42.0-52.0); Hemoglobin 14.1 g/dL (14.0-18.0); Mean Corpuscular HGB CONC 32.3 g/dL (32.0-36.0); Mean Corpuscular Hemoglobin 26.9 pg (27.0-31.0); Mean Platelet Volume 9.3 fL (7.4-10.4); Platelet Count 290 10x3/uL (130-400); RBC Distribution Width 13.8 % (11.5-14.5); Red Blood Cell (RBC) Count 5.25 mill/uL (4.70-6.10)
[2024-12-04 08:50] LABS: ALT (SGPT) 7 U/L (Less than 45); AST (SGOT) 17 U/L (11-34); Albumin 3.5 g/dL (3.1-4.5); Alkaline Phosphatase 73 U/L (40-110); Anion Gap 12 mmol/L (10-20); BUN (Urea Nitrogen) 9 mg/dL (8.4-25.7); Bilirubin, Total 0.8 mg/dL (0.3-1.2); Calc. Creatinine Clearance 0 mL/min (70-130); Calcium 8.6 mg/dL (7.8-10.44); Carbon Dioxide 27 mmol/L (22-29); Chloride 104 mmol/L (98-107); Estimated GFR 98; Globulin 3.6 g/dL (2.4-3.5); Glucose 273 mg/dL (70-105); Potassium 3.9 mmol/L (3.5-5.1); Protein, Total 7.1 g/dL (6.0-8.3); Sodium 139 mmol/L (136-145)
[2024-12-04 08:55] LABS: Troponin I 0.026 ng/mL (< 0.028)
[2024-12-04 12:11] LABS: Troponin I 0.023 ng/mL (< 0.028)
== END 2024-12-04 12:30 | disposition home or self-care (01) ==
LOC: ERS 07:44
DX: I10 Essential (primary) hypertension (principal); R07.9 Chest pain, unspecified; E10.65 Type 1 diabetes mellitus with hyperglycemia; F17.210 Nicotine dependence, cigarettes, uncomplicated; E78.5 Hyperlipidemia, unspecified; Z79.899 Other long term (current) drug therapy; Z79.4 Long term (current) use of insulin
CPT/HCPCS: 36415; 36416; 71045; 80053; 84484; 85025; 93005; 96360